=== PATIENT | male | born 1935 | race African-American/Black ===

== ENCOUNTER 2017-04-28 23:06 | Emergency (ER) | payer SELFPAY ==
[~2017-04-28] VITALS: Ht 177.8 cm; Wt 89.8 kg
[~2017-04-28 23:06] MED LIST: ATROPINE SULF 0.5 MG/5ML SYR IV ONE; CALCIUM CHLOR(10%) 100MG/ML 10ML SYRINGE IV ONE; DOPamine 1600MCG/ML 400MG/250ML PREMIX BAG IV ONE; EPINEPHrine HCL 1 MG/10 ML SYRG IV ONE; SODIUM BICARBONATE 8.4% INJ 50ML SYRINGE IV ONE
[2017-04-28] MEDS ORDERED: NOREPINEPHRINE BITARTRATE 250 ML IV ONE (23:24)
[2017-04-28] MEDS ORDERED: SODIUM BICARBONATE 8.4% INJ 50ML SYRINGE ONE (23:40)
[2017-04-28 23:43] LABS: DEFINITIVE SEE PRINTOUT; Hematocrit 24.4 % (41.0-53.0); Hemoglobin 7.4 g/dL (13.5-17.5); Mean Corpuscular Hemoglobin 29.6 pg (28.0-32.0); Mean Corpuscular Hgb Conc. 30.5 g/dL (32.0-36.0); Mean Platelet Volume 8.1 fL (7.4-10.4); Platelet Count (auto) 63 10^3/uL (140-450); Red Cell Distribution Width 14.8 % (11.6-16.0); SUSPECT SEE PRINTOUT
[2017-04-28] MEDS ORDERED: ATROPINE SULF 0.5 MG/5ML SYR ONE (23:43)
[2017-04-28 23:50] VITALS: BP 41/20
[2017-04-28 23:50] LABS: Promyelocytes % 0; Reactive Lymphocytes 0
[2017-04-28 23:56] LABS: Base Excess -24.4 mmol/L (-2.0-2.0); Blood 02Sat 82.8 % (96-100); Blood COHb 0.2 % (0.5-1.5); Blood MetHb 0.7 % (0.0-1.5); CPAP / PEEP 0; HCO3 8.4 mmol/L (22-26.0); MODE VENT - A/C; O2Hb 82.1 % (94.0-97.0); PCO2 53.4 mmHg (35.0-45.0); PCO2(T) 53.4 mmHg (35.0-45.0); PO2 91.1 mmHg (80.0-100.0); PO2(T) 91.1 mmHg (80.0-100.0); Sample Type Arterial; pH 6.814 (7.350-7.450)
[2017-04-29 00:03] LABS: BUN/Creatinine Ratio 10.3
[2017-04-29 00:06] LABS: Burr Cells MODERATE; Hypersegmented Neutrophils Present; Lactic Acid w/Reflex 13.8 mmol/L (0.4-2.0); Metamyelocytes % 2; Myelocytes % 1; Platelet Estimate Decreased
[2017-04-29 00:07] LABS: Anisocytosis Slight; Ovalocytes FEW
[2017-04-29 00:08] LABS: Bilirubin, Total 0.3 mg/dL (0.2-1.0); INR 1.53 (0.9-1.15)
[2017-04-29 00:09] LABS: Magnesium 2.3 mg/dL (1.6-2.6); Potassium 3.9 mmol/L (3.5-5.1); REFLEX LACTIC ACID YES OR NO YES
[2017-04-29 00:30] LABS: B-Type Natriuretic Peptide 32.7 pg/mL (0-100); Temperature: 22.9 C (20.0-25.0)
[2017-04-29] MEDS ORDERED: ACETAMINOPHEN 325 MG TAB PO ONE (01:35)
== END 2017-04-29 02:38 | disposition expired ==
LOC: ER 23:06 → EDBD 23:06 → ER 04-29 02:38
DX: I46.9 Cardiac arrest, cause unspecified (principal)
CPT/HCPCS: 36415; 36600; 71010; 80053; 82805; 82962; 83605; 83735; 83880; 84484; 85007; 85027; 85379; 85610; 85730; 87040; 87077; 87186; 92950; 93005; 99285; J0171; J0461; J1265; 94002